=== PATIENT | male | born 1995 | race Hispanic/Latino ===

== ENCOUNTER 2019-02-05 21:28 | Emergency (ER) | payer SELFPAY ==
[2019-02-05] MEDS ORDERED: ONDANSETRON ODT 4 MG TAB ONE (22:07)
[2019-02-05] MEDS ORDERED: MAG HYDROX/AL HYDROX/SIMETH ES 30 ML SUSP UDCUP ONE (22:52)
[2019-02-05] MEDS ORDERED: LIDOCAINE HCL 2% VISCOUS 15 ML UDCUP ONE (22:52)
== END 2019-02-05 23:59 | disposition home or self-care (01) ==
LOC: EDH 21:28
DX: A08.4 Viral intestinal infection, unspecified (principal); J45.909 Unspecified asthma, uncomplicated; Z87.891 Personal history of nicotine dependence
CPT/HCPCS: 82948